=== PATIENT | male | born 1940 | race Caucasian/White ===

== ENCOUNTER 2017-11-26 07:39 | Day surgery (SDC) | payer MEDICARE, OTHER ==
--- NOTE | 2017-11-19 08:47 | HP ---
HISTORY AND PHYSICAL: DATE OF ADMISSION/SURGERY: 11/26/17 ATTENDING PROVIDER: Yen Mitchell MD* (DICTATED BY YANETH GODINEZ) HISTORY OF PRESENT ILLNESS: Mr. Allan is a 77-year-old male who presented with an injury initially sustained on 10/11/17 to his right knee. He states while in yoga class, he had some pain while standing up from the crossed-leg position. He states he was unable to place his weight on that leg for a short period of time and he started to have locking sensations of the knee on 5 separate occasions. He has become very hesitant with utilizing the knee and he avoids overly bending the knee at this point to avoid locking of the knee. The patient states that when it locks, it is an 8/10 pain. The patient had an MRI performed and was diagnosed with a horizontal tear in the posterior horn of the medial meniscus and an incomplete longitudinal tear in the anterior horn of the lateral meniscus. It was explained to the patient that a right knee partial medial and lateral meniscectomy would be helpful with alleviating the mechanical symptoms of the knee. The patient understood this and would like to undergo the procedure. PAST MEDICAL HISTORY: 1. Hypertension. 2. Hypercholesterolemia. 3. Arthritis. 4. Depression. PAST SURGICAL HISTORY: 1. Removal of tonsils in 1952. 2. Removal of cyst from finger in 2012. 3. Kidney stone removal and removal of precancerous cells from the bladder in 2013. MEDICATIONS: 1. Lipitor 80 mg. 2. Remeron 15 mg. 3. Lisinopril 10 mg. 4. Aspirin 81 mg. 5. [place]-3, 800 mg. 6. Glucosamine 750 mg. 7. Multivitamin. 8. Vitamin D3, 2000. ALLERGIES: No known drug allergies. He does have a reaction to OxyContin, causing nausea. SOCIAL HISTORY: The patient lives with spouse. The patient denies drinking, smoking, or any illicit drug use. REVIEW OF SYSTEMS: General: He denies any fevers, chills, or night sweats. No known anesthesia problems. HEENT: He denies any headache, lightheadedness, or syncopal episodes. Cardiothoracic: Denies any chest pain, heart palpitations, or edema. Pulmonary: Denies any shortness of breath with exertion, chronic cough, COPD. GI: Denies any nausea, vomiting, diarrhea, or constipation. : Denies any nocturia, urinary frequency, or urgency. MSK: Denies any chronic or intermittent back pain or fractures. Admits to locking of the right knee. Neuro: Denies any paresthesias, numbness, seizure, stroke, or epilepsy. Integument: Denies any abrasions, lesions, rashes, lumps, or open sores. PHYSICAL EXAMINATION GENERAL: The patient is alert and oriented x3 with appropriate mood and affect , appropriate dress and hygiene. Nonantalgic gait. Bilateral well-coordinated upper and lower extremities. HEENT: Normocephalic, atraumatic. Hearing and vision grossly intact. PULMONARY: Lungs are clear to auscultation bilaterally with no wheezes, rales, or rhonchi. CARDIO: Regular rate and rhythm. Normal S1 and S2. No appreciable S3 or S4. No murmurs, rubs, or gallops. MSK: Right lower extremity: Inspection of the right lower extremity reveals no erythema or ecchymosis. Skin is warm, dry, intact. The patient has range of motion of the right lower extremity of 2 degrees of hyperextension to 135 degrees of flexion without pain. He has negative Jia's. Negative anterior and posterior Drawer test. Negative varus and valgus stress testing. No pain or laxity with varus and valgus testing. Negative Carito's. He has some mild tenderness to palpation along the medial and lateral joint lines. He is neurovascularly intact distally with a 2+ dorsalis pedis pulse. IMAGING: MRI from 11/13/17 was obtained and reviewed today. There is a horizontal tear in the posterior horn of the medial meniscus and a longitudinal tear in the anterior horn of the lateral meniscus. IMPRESSION: Right knee medial and lateral meniscus tears. PLAN: The patient will tentatively be scheduled for a right knee arthroscopic medial and lateral meniscectomy on 11/26/17. He will follow up with his primary care doctor for presurgical clearance. He will return to the office 10 to 14 days after surgery for suture removal and followup. The risks and benefits were discussed with the patient and he understood them. He would like to proceed. YANETH GODINEZ [id number]/[facility] #: [id number] [facility]PITALNarcisa
[~2017-11-26 07:39] MED LIST: Buffered Lidocaine 0.9% SYRIN* 5 ML/SYR SYRINGE INTRADERM ONE; Dexamethasone IV* 4 MG/ML 1 ML (4 MG) IV SLOW PU ONE; Famotidine TAB* 20 MG PO ONE
[2017-11-26] MEDS ORDERED: Famotidine TAB* 20 MG ONE (07:48)
[2017-11-26] MEDS ORDERED: Buffered Lidocaine 0.9% SYRIN* 5 ML/SYR SYRINGE ONE (07:48)
[2017-11-26] MEDS ORDERED: Dexamethasone IV* 4 MG/ML 1 ML (4 MG) ONE (07:48)
[2017-11-26] MEDS ORDERED: ceFAZolin 2 GM PREMIX (*) 2 GM/50 ML BAG IVPB ONE (07:48)
[2017-11-26] MEDS ORDERED: EPINEPHRINE 1 MG/ML 1 ML VIAL ONE ×2 (08:10→09:05)
[2017-11-26] MEDS ORDERED: methylPREDNISolone ACETATE 80* 80 MG/ML 1 ML VIAL ONE (08:10)
[2017-11-26] MEDS ORDERED: Bupivacaine 0.25% SDV* 30 ML ONE (08:10)
[2017-11-26] MEDS ORDERED: Midazolam* 1 MG/ML 5 ML VIAL (5 MG) ONE (08:36)
[2017-11-26] MEDS ORDERED: fentaNYL* 50 MCG/ML 2 ML VIAL (100 MCG VIAL) ONE (08:36)
[2017-11-26] MEDS ORDERED: Ketorolac INJ* 30 MG/ML 1 ML VIAL ONE (09:01)
[2017-11-26] MEDS ORDERED: Propofol* 10 MG/ML 20 ML BTL IV PUSH ONE (09:01)
[2017-11-26] MEDS ORDERED: Chloroprocaine 2%* 20 ML VIAL ONE (09:01)
[2017-11-26] MEDS ORDERED: Ondansetron INJ* 2 MG/ML VIAL ONE (09:01)
[2017-11-26] MEDS ORDERED: HYDROmorphone INJ* 1 MG/ML CARPUJECT SYRINGE IV PRN (09:41)
[2017-11-26] MEDS ORDERED: Naloxone* 0.4 MG/ML 1 ML VIAL IV PRN (09:41)
[2017-11-26] MEDS ORDERED: DiMENhydriNATE IV* 50 MG/ML VIAL IV PUSH PRN (09:41)
[2017-11-26] MEDS ORDERED: Ondansetron INJ* 2 MG/ML VIAL IV PRN (09:41)
[2017-11-26] MEDS ORDERED: fentaNYL* 50 MCG/ML 2 ML VIAL (100 MCG VIAL) IV PRN (09:41)
[2017-11-26 12:01] VITALS: BP 141/86
--- NOTE | 2017-11-27 05:34 | OP ---
DATE OF OPERATION: 11/26/17 - [facility] DATE OF : 44 ATTENDING SURGEON: Yen Mitchell MD LEGAL TRANSCRIPTIONIST: YANETH Gupta. Ms. Bailon did help throughout the procedure with preparation of the leg, wound retraction, manipulation of the knee, and wound closure. ANESTHESIOLOGIST: Dr. Wayne. ANESTHESIA: Spinal. PRE-OP DIAGNOSIS: Acute medial and lateral meniscal tears of the right knee joint. POST-OP DIAGNOSIS: Acute medial and lateral meniscal tears of the right knee joint. PROCEDURE PERFORMED: Right knee arthroscopy with partial medial meniscectomy and partial lateral meniscectomy. ESTIMATED BLOOD LOSS: Less than 25 cc. SPECIMEN: None. COMPLICATIONS: None. BRIEF HISTORY/INDICATIONS: Mr. Allan is a 77-year-old gentleman who had a traumatic injury to the right knee while doing a deeply flexed yoga move less than 2 months ago. He felt a pop and since then has had feelings of catching and shot of pain with certain yoga positions. His history and physical exam are consistent with meniscal tear and this was confirmed on MRI. Both medial and lateral meniscal tears were confirmed on MRI. The patient wished to continue with yoga and all of his chosen activities. He elected to undergo right knee arthroscopy with partial medial meniscectomy and partial lateral meniscectomy. Informed consent was obtained from the patient. He understood the risks of surgery included, but were not limited to bleeding, infection, damage to nearby structures, continued pain, need for further surgery, re-tear of the meniscus, stroke, heart attack, blood clot, and . INTRAOPERATIVE FINDINGS: Intraoperatively, the patient was noted to have a linear tear in the white-red and red-red zone of his posterior third lateral meniscus. He also had a parrot-beak type tear in the mid portion of his medial meniscus, which also displaced. He has some grade 2 and 3 Out[place]bridge cartilage changes in the medial and patello-femoral compartments. DESCRIPTION OF PROCEDURE: Mr. Allan was identified in the preanesthesia unit. His right lower extremity was marked as the correct operative side. Informed consent was signed and placed in the chart. The patient was taken to the operating room and placed under spinal anesthesia. Right lower extremity was prepped and draped in the usual sterile fashion. Preop time-out was made to once again correctly identify the patient's side and site. Appropriate perioperative antibiotics were given within 1 hour of incision. A standard 0.5 cm anterolateral portal incision was made with a 15 blade and carried through the capsule. Trocar was introduced. As soon as the light and water sources were turned on, there was immediate visualization of the suprapatellar pouch. Suprapatellar pouch had no significant abnormality. Patellofemoral compartment had grade 2 and 3 Outerbridge cartilage changes mainly affecting the trochlear grooves of the femur and the medial patellar facet. Medial gutter had no significant loose body or plica. Medial compartment showed some minimal grade 2 and 3 Outerbridge cartilage changes along the medial femoral condyle. There was a visible anteriorly displaced parrot beak tear of the medial meniscus involving a flipped portion. ACL and PCL appeared to be intact. The knee was placed in a [id number] position. A linear tear was noted along the posterior one third of the lateral meniscus extending near the root. There were no significant degenerative changes in the lateral compartment. Lateral gutter had no loose body or plica. Under direct visualization, the medial portal incision was made with a 15 blade. A probe was introduced and a second tour of the knee joint was performed. No additional findings were noted. The medial meniscus tear was a parrot beak complex- type tear involving the middle third of the medial meniscus. This involved mainly the white-red zone. Straight biter and shaver were used to perform partial medial meniscectomy in the white-red zone. A smooth border was obtained. Radiofrequency ablation wire was used to further smooth the edge of the medial meniscus. Further probing of the medial meniscus showed no additional tears or flipped fragments. Next, attention was turned to the lateral compartment. There was a linear tear in the posterior one third of the lateral meniscus involving the white-red and red-red zone. This fragment did displace anteriorly much like a bucket-handle tear. Straight biter and shaver were used to perform partial lateral meniscectomy. A smooth border of the meniscus was obtained using the shaver and radiofrequency ablation wand. This was in both the white-red and red-red zone of the posterior one third of the lateral meniscus. Probe was used to ensure there was no additional tears or flipped fragments and there were none. The knee joint was copiously irrigated with sterile saline. All instruments were removed. Incisions were closed using interrupted 3-0 nylon suture. Intraarticular injection of 80 mg Depo-Medrol and 6 cc of 0.25% Marcaine was placed in the knee joint. The patient's incisions were covered with Xeroform, 4x4s, and Webril. Rigo wrap and cold pack were placed over this. The patient's anesthesia was reversed without difficulty. He was taken to the PACU in stable condition. Intended weightbearing will be weightbearing as tolerated. Intended DVT prophylaxis will be aspirin. [id number]/[facility] #: [id number] [facility] FACILITYNarcisa
== END 2017-11-26 12:27 | disposition home or self-care (01) ==
LOC: OR 07:39
PROVIDERS: ATTEND Orthopaedic Surgery Adult Reconstructive Orthopaedic Surgery
DX: S83.241A Other tear of medial meniscus, current injury, right knee, initial encounter (principal); S83.281A Other tear of lateral meniscus, current injury, right knee, initial encounter; X50.0XXA Overexertion from strenuous movement or load, initial encounter; Y93.B4 Activity, pilates; Y92.9 Unspecified place or not applicable; I10 Essential (primary) hypertension; E78.5 Hyperlipidemia, unspecified; M19.90 Unspecified osteoarthritis, unspecified site; F32.9 Major depressive disorder, single episode, unspecified; G47.33 Obstructive sleep apnea (adult) (pediatric)
CPT/HCPCS: A9270-GY; J0690; J1040; J1100; J1885; J2250; J2400; J2405; J2704; J3010